=== PATIENT | male | born 1975 | race Caucasian/White ===

== ENCOUNTER 2017-01-13 08:35 | Day surgery (SDC) | payer BC ==
[2017-01-13] MEDS: LIDOCAINE HCL 1% 20 ML VIAL SUBCUT ONE (08:50)
[2017-01-13] MEDS: LACTATED RINGERS 1,000 ML IV SCH (08:51)
[2017-01-13] MEDS ORDERED: ceFAZolin 1 GM in NORMAL SALINE MINI-BAG+ 100 ML IV ONE (09:00)
[2017-01-13] MEDS ORDERED: SCOPOLAMINE 1.5 MG PATCH TD ONE ×2 (09:01→10:50)
[2017-01-13] MEDS ORDERED: MIDAZOLAM HCL 2 MG/2 ML SYR IV ONE (09:01)
[2017-01-13] MEDS ORDERED: BUPIVACAINE HCL/PF 0.25% 10 ML VIAL INJ ONE ×2 (09:01→10:31)
[2017-01-13] MEDS ORDERED: LIDOCAINE HCL 1% 20 ML VIAL SUBCUT ONE (09:01)
[2017-01-13 09:13] VITALS: TEMP 98.2
[2017-01-13] MEDS ORDERED: ACETAMINOPHEN 1,000 MG/100 ML VIAL IV SCH ×2 (09:15→10:50)
[2017-01-13] MEDS: FAMOTIDINE IN SALINE, ISO-OSM 20 MG/50 ML PIGGYBACK IV SCH (09:15)
[2017-01-13] MEDS ORDERED: FAMOTIDINE IN SALINE, ISO-OSM 20 MG/50 ML PIGGYBACK IV SCH ×2 (09:15→10:50)
[2017-01-13] MEDS: MIDAZOLAM HCL 2 MG/2 ML SYR IV ONE (09:18)
[2017-01-13] MEDS: ACETAMINOPHEN 1,000 MG/100 ML VIAL IV SCH (09:20)
[2017-01-13] MEDS: SCOPOLAMINE 1.5 MG PATCH TD SCH (09:21)
[2017-01-13] MEDS ORDERED: ceFAZolin 1 GM/10 ML VIAL ONE (09:26)
[2017-01-13] MEDS: ceFAZolin 1 GM in NORMAL SALINE MINI-BAG+ 100 ML IV ONE (09:26)
[2017-01-13] MEDS ORDERED: FAMOTIDINE IN SALINE, ISO-OSM 50 ML IV ONE (09:26)
[2017-01-13] MEDS ORDERED: ACETAMINOPHEN 1,000 MG/100 ML VIAL IV ONE (09:26)
[2017-01-13] MEDS ORDERED: MIDAZOLAM HCL 2 MG/2 ML VIAL ONE (09:30)
[2017-01-13] MEDS ORDERED: ONDANSETRON HCL 4 MG/2 ML VIAL ONE ×2 (09:35→09:36)
[2017-01-13] MEDS ORDERED: FENTANYL 100 MCG/2 ML VIAL ONE (09:35)
[2017-01-13] MEDS ORDERED: KETOROLAC TROMETHAMINE 30 MG/ML VIAL ONE (09:36)
[2017-01-13] MEDS ORDERED: DEXAMETHASONE 4 MG/ML VIAL ONE (09:50)
[2017-01-13] MEDS ORDERED: LACTATED RINGERS 1,000 ML IV SCH ×3 (10:00→10:50)
[2017-01-13] MEDS ORDERED: HYDROmorphone HCL 1 MG/ML SYR IV PRN (10:50)
[2017-01-13] MEDS ORDERED: MORPHINE SULFATE 10 MG/ML SYR IV PRN (10:50)
[2017-01-13] MEDS ORDERED: FENTANYL 100 MCG/2 ML VIAL IV PRN (10:50)
[2017-01-13] MEDS ORDERED: ONDANSETRON HCL 4 MG/2 ML VIAL IV PRN (10:50)
--- NOTE | 2017-01-13 12:07 | PROCEDURE NOTE: Gen Surgery ---
General Surgery Procedure Note - Date of Encounter Date of Encounter: 01/13/17 - Brief Operative Note (1) Umbilical hernia without obstruction or gangrene Date of procedure: 01/13/17 Pre-Op Diagnosis: same Post-op diagnosis: same Procedure: repair of hernia with mesh. Implants: pro nurse outreach case manager mesh Anesthesia Type: General (LMA/ Remington Willis) Physician: ROMY ZEE Pathology: none sent X-ray taken: No Sponge and instrument counts: correct Condition: stable Disposition: same day Narrative: 3cm by 2cm incacerated umbilical hernia reduced, closed and bolstered with an onlay patch of pro-nurse outreach case manager mesh 9cm by 9cm in size.
[2017-01-13 12:14] VITALS: BP 121/82; PULSE 68; RESP 20; O2SAT 90
--- NOTE | 2017-01-13 16:31 | OPERATIVE REPORT ---
DATE OF SURGERY: 01/13/17 SURGEON: Pavan Victoria MD ANESTHESIA: General laryngeal mask airway by Maya Willis CRNA. PREOPERATIVE DIAGNOSIS: Incarcerated umbilical hernia. POSTOPERATIVE DIAGNOSIS: Incarcerated umbilical hernia. PROCEDURE PERFORMED 1. Repair of umbilical hernia. 2. Placement of mesh. FINDINGS: Patient had a symptomatic umbilical hernia with incarcerated fat within it. This was non-reducible and causing him more pain. At the time of exploration the hernia was about 3 cm in length and 2 cm at its maximum cephalad caudad dimension. The preperitoneal fat was reduced and the hernia defects were closed. Mesh was placed because of the size of the defect. SUMMARY: The patient was taken to the operating room and placed in the supine position. He was intubated with a laryngeal mask airway and general anesthesia was started. His abdomen was then prepped with a ChloraPrep solution. Three minutes time were allowed to elapse for the prep to dry. Draping then occurred. Time out was called and the correct patient, correct preoperative medications and correct procedure were verified. A curvilinear incision was marked out below the umbilicus. Local in the form of 0.25% Marcaine without epinephrine was then infiltrated. The skin was sharply incised. Dissection was carried down to the inferior fascial defect, and the fascial defect was freed up from the surrounding tissues. The preperitoneal fat was then dissected off the back side of the umbilical skin. It was then reduced. Moving more cephalad another area of fatty tissue was reduced and pushed back into the preperitoneal space. The entire fascial defect was then freed up from the surrounding tissues. The fascia was closed with a running 2-0 Prolene suture. Next an approximately 9 x 9 cm area was dissected free on top of the fascia. A Progrip mesh was then placed in this onlay plane. Once flattened out, it was tacked in place with four 2-0 Prolene sutures. Subcutaneous tissues were then closed with a running 3-0 Vicryl, and the backside of the umbilical skin was closed with an interrupted 3-0 Vicryl. The skin was then closed with running subcuticular 4-0 Monocryl. Steri-Strips and dressing were then applied, anesthesia was reversed and the patient was taken from the operating room to the recovery room. [facility]
== END 2017-01-13 12:00 | disposition home or self-care (01) ==
LOC: SDS 08:35
PROVIDERS: ATTEND Surgery
DX: K42.9 Umbilical hernia without obstruction or gangrene (principal)
CPT/HCPCS: C1781; J0690; J1885; J2250; J2405